=== PATIENT | female | born 1980 | race Caucasian/White ===

== ENCOUNTER → 2016-09-30 | Outpatient (CLI) | payer OTHER ==
[~2016-09-30] MED LIST: FOLIC ACID PO; MTR600X PO; OXYC-57 PO; PRENTAB26 PO
== END | disposition home or self-care (01) ==
LOC: C.PAPS 09:49
PROVIDERS: ATTEND Obstetrics & Gynecology
DX: Z01.419 Encounter for gynecological examination (general) (routine) without abnormal findings (principal)